=== PATIENT | female | born 1980 | race African-American/Black ===

== ENCOUNTER 2017-06-19 11:10 | Emergency (ER) | payer SELFPAY ==
[2017-06-19 11:37] LABS: URINE HCG POC HCG NEGATIVE (Negative)
[2017-06-19 11:48] LABS: ADD MAN DIFF? NO
[2017-06-19 11:53] LABS: BASO # 0.1 x10^3/uL (0.0-0.2); BASO % 1 % (0-3); EOS # 0.4 x10^3/uL (0.0-0.7); EOS % 5 % (0-3); HEMATOCRIT 37.8 % (36.0-47.0); HEMOGLOBIN 12.9 g/dL (12.0-15.5); LYMPH # 1.7 x10^3/uL (1.0-4.8); LYMPH % 20 % (24-48); MEAN CORPUSCULAR HEMOGLOBIN 31 pg (25-35); MEAN CORPUSCULAR HGB CONC 34 g/dL (31-37); MEAN CORPUSCULAR VOLUME 92 fL (79-100); MONO # 0.7 x10^3/uL (0.0-1.1); MONO % 9 % (0-9); NEUT # 5.4 x10^3uL (1.8-7.7); NEUT % 66 % (31-73); PLATELET COUNT 159 x10^3/uL (140-400); RED CELL DISTRIBUTION WIDTH 12.9 % (11.5-14.5); WHITE BLOOD COUNT 8.2 x10^3/uL (4.0-11.0)
[2017-06-19 11:59] LABS: ANION GAP 8 (6-14); BACTERIA,URINE FEW /HPF (0-FEW); BILIRUBIN,URINE NEGATIVE (NEG); BLOOD UREA NITROGEN 17 mg/dL (7-20); BUN/CREATININE RATIO 17 (6-20); CALCIUM 8.1 mg/dL (8.5-10.1); CARBON DIOXIDE 27 mmol/L (21-32); CHLORIDE 106 mmol/L (98-107); CLARITY,URINE CLEAR; COLOR,URINE YELLOW; GFR 75.5; GLUCOSE 116 mg/dL (70-99); GLUCOSE,URINE NEGATIVE (NEG); NITRITE,URINE NEGATIVE (NEG); PH,URINE 5.5; POTASSIUM 3.5 mmol/L (3.5-5.1); PROTEIN,URINE NEGATIVE (NEG-TRACE); RBC,URINE 0 /HPF (0-2); SODIUM 141 mmol/L (136-145); SQUAMOUS EPITHELIAL CELL,UR MANY /LPF; UROBILINOGEN,URINE 0.2 mg/dL (0.2 mg/dL); WBC,URINE OCC /HPF (0-4)
[2017-06-19 12:04] LABS: ALBUMIN 3.4 g/dL (3.4-5.0); ALK PHOS 62 U/L (46-116); ALT (SGPT) 23 U/L (14-59); AST (SGOT) 18 U/L (15-37); LIPASE 211 U/L (73-393); TOTAL BILIRUBIN 0.3 mg/dL (0.2-1.0); TOTAL PROTEIN 6.8 g/dL (6.4-8.2)
[2017-06-19] MEDS: IV NORMAL SALINE 1000ML BAG 1,000 ML IV ×2 (12:11)
[2017-06-19] MEDS: ONDANSETRON PF 4 MG/2 ML VIAL. IV ×2 (12:12)
[2017-06-19] MEDS: HYDROmorphone 2 MG/ML VIAL IV ×2 (12:13)
[2017-06-19] MEDS: cefTRIAXone IM 250 MG VIAL IM ×2 (13:38)
[2017-06-19] MEDS: AZITHROMYCIN 250 MG TABLET. PO ×2 (13:38)
[2017-06-20 19:17] LABS: CHLAMYDIA PROBE Negative (Negative); GC PROBE Negative (Negative)
== END 2017-06-19 14:47 | disposition home or self-care (01) ==
LOC: ER 11:10
DX: R10.30 Lower abdominal pain, unspecified (principal); Z88.2 Allergy status to sulfonamides
CPT/HCPCS: 36415; 76830; 76856; 80053; 81001; 81025; 83690; 85025; 87491; 87591; 96361; 96372; 96374; 96375; 99285-25; J0696; J1170; J2405; J7030; Q0111; Q0144

== ENCOUNTER 2017-10-26 08:37 | Emergency (ER) | payer SELFPAY | END 2017-10-26 09:07 | disposition home or self-care (01) | LOC: ER 09:07 | DX: B85.1 Pediculosis due to Pediculus humanus corporis (principal); Z88.2 Allergy status to sulfonamides | CPT/HCPCS: 99282 ==

== ENCOUNTER 2018-02-15 06:40 | Emergency (ER) | payer SELFPAY ==
[~2018-02-15] VITALS: Ht 162.6 cm; Wt 81.6 kg
[~2018-02-15 06:40] MED LIST: HYDR-2758 PO; ONDA4TAB10 SL; PERM60CR12 TP
--- NOTE | 2018-02-15 07:10 | PHYS DOC ---
Past Medical History Past Medical History: No Pertinent History Past Surgical History: Other Additional Past Surgical Histo: D&C Alcohol Use: Occasionally Drug Use: None Adult General Chief Complaint Chief Complaint: TEST [facility] HPI Patient is a 37 year old presented to ER today concerning about her . Patient said she is about 13 weeks , her last menstrual period was on November 23, 2017. Patient had an ultrasound done on 02/11/2018 shown a normal IUP. Patient says she had been feeling some slight moment alcohol fetus, however the last 24-hour she did not feel anything. She denies any pelvic pain, no vaginal bleeding, no vaginal discharge. Patient denies any nausea or vomiting. Patient would like somebody to check the heart tone. This is her sixth , she had 2 miscarriages last year. Review of Systems Review of Systems Constitutional: Denies fever or chills [] Eyes: Denies change in visual acuity, redness, or eye pain [] HENT: Denies nasal congestion or sore throat [] Respiratory: Denies cough or shortness of breath [] Cardiovascular: No additional information not addressed in HPI [] GI: Denies abdominal pain, nausea, vomiting, bloody stools or diarrhea [] : Denies dysuria or hematuria [] Musculoskeletal: Denies back pain or joint pain [] Integument: Denies rash or skin lesions [] Neurologic: Denies headache, focal weakness or sensory changes [] Endocrine: Denies polyuria or polydipsia [] All other systems were reviewed and found to be within normal limits, except as documented in this note. Allergies Allergies Allergies Coded Allergies Type Severity Reaction Last Updated Verified Sulfa (Sulfonamide Antibiotics) Allergy Intermediate RASH 06/19/17 Yes Physical Exam Physical Exam Constitutional: Well developed, well nourished, no acute distress, non-toxic appearance. [] HENT: Normocephalic, atraumatic, bilateral external ears normal, oropharynx moist, no oral exudates, nose normal. [] Eyes: PERRLA, EOMI, conjunctiva normal, no discharge. [] Neck: Normal range of motion, no tenderness, supple, no stridor. [] Cardiovascular:Heart rate regular rhythm, no murmur [] Lungs & Thorax: Bilateral breath sounds clear to auscultation [] Abdomen: Bowel sounds normal, soft, no tenderness, no masses, no pulsatile masses. [] Skin: Warm, dry, no erythema, no rash. [] Back: No tenderness, no CVA tenderness. [] Extremities: No tenderness, no cyanosis, no clubbing, ROM intact, no edema. [] Neurologic: Alert and oriented X 3, normal motor function, normal sensory function, no focal deficits noted. [] Psychologic: Affect normal, judgement normal, mood normal. [] Current Patient Data Vital Signs Vital Signs Date Time Temp Pulse Resp B/P (MAP) Pulse Ox O2 Delivery O2 Flow Rate FiO2 02/15/18 07:32 98.7 90 18 134/95 (108) 99 Room Air 98.7 Lab Values Laboratory Tests Test 02/15/18 06:44 Urine Collection Type Unknown Urine Color Yellow Urine Clarity Clear Urine pH 5.5 Urine Specific Badger 1.010 Urine Protein Negative mg/dL (NEG-TRACE) Urine Glucose (UA) Negative mg/dL (NEG) Urine Ketones (Stick) Negative mg/dL (NEG) Urine Blood Negative (NEG) Urine Nitrite Negative (NEG) Urine Bilirubin Negative (NEG) Urine Urobilinogen Dipstick 0.2 mg/dL (0.2 mg/dL) Urine Leukocyte Esterase Negative (NEG) Urine RBC 0 /HPF (0-2) Urine WBC Occ /HPF (0-4) Urine Squamous Epithelial Cells Mod /LPF Urine Bacteria Moderate /HPF (0-FEW) Urine Mucus Slight /LPF EKG EKG [] Radiology/Procedures Radiology/Procedures [] Course & Med Decision Making Course & Med Decision Making Pertinent Labs and Imaging studies reviewed. (See chart for details) HEART TONE: 160 BPM. Dragon Disclaimer Dragon Disclaimer This electronic medical record was generated, in whole or in part, using a voice recognition dictation system. Departure Departure Impression: Primary Impression: Disposition: HOME, SELF-CARE Condition: STABLE Referrals: NO PCP (PCP) Patient Instructions: ABCs of RUDY GRIDER DO Feb 15, 2018 07:10
[2018-02-15 07:27] LABS: BILIRUBIN,URINE NEGATIVE (NEG); CLARITY,URINE CLEAR; COLOR,URINE YELLOW; NITRITE,URINE NEGATIVE (NEG); PH,URINE 5.5; PROTEIN,URINE NEGATIVE (NEG-TRACE); UROBILINOGEN,URINE 0.2 mg/dL (0.2 mg/dL)
[2018-02-15 07:32] VITALS: BP 134/95
[2018-02-15 07:34] LABS: SQUAMOUS EPITHELIAL CELL,UR MOD /LPF
[2018-02-15 07:35] LABS: BACTERIA,URINE MODERATE /HPF (0-FEW); RBC,URINE 0 /HPF (0-2); WBC,URINE OCC /HPF (0-4)
== END 2018-02-15 09:00 | disposition home or self-care (01) ==
LOC: ER 06:40
DX: Z34.81 Encounter for supervision of other normal pregnancy, first trimester (principal); Z88.2 Allergy status to sulfonamides; Z3A.12 12 weeks gestation of pregnancy
CPT/HCPCS: 81001; 87086; 99284